=== PATIENT | female | born 1965 | race Caucasian/White ===

== ENCOUNTER 2018-02-09 19:29 | Emergency (ER) | payer MEDICAID ==
[~2018-02-09] VITALS: Ht 165.1 cm; Wt 86.0 kg
[~2018-02-09 19:29] MED LIST: HYDR12.529; HYDROXYZINE; IBUP100T53; UNK MEDS
[2018-02-09 19:40] VITALS: BP 140/107
== END 2018-02-10 00:32 | disposition left against medical advice (07) ==
LOC: ER 21:28
DX: Z53.21 Procedure and treatment not carried out due to patient leaving prior to being seen by health care provider (principal)

== ENCOUNTER 2022-12-17 22:03 | Emergency (ER) | payer MEDICAID, OTHER ==
[~2022-12-17] VITALS: Ht 160 cm; Wt 70.0 kg
[2022-12-17 22:07] VITALS: BP 158/98; PULSE 98; RESP 16; TEMP 98.6; O2SAT 98
== END 2022-12-18 00:37 | disposition left against medical advice (07) ==
LOC: ER 22:27
DX: R10.9 Unspecified abdominal pain (principal); Z53.21 Procedure and treatment not carried out due to patient leaving prior to being seen by health care provider
CPT/HCPCS: 99281; 99283